=== PATIENT | female | born 1990 | race Caucasian/White ===

== ENCOUNTER 2022-01-01 07:50 | Day surgery (SDC) | payer SELFPAY ==
[~2022-01-01] VITALS: Ht 160 cm; Wt 81.1 kg
[2022-01-01] MEDS ORDERED: PRIL40 PO (09:13)
[2022-01-01] MEDS ORDERED: TOPAMAX 25MG25 M1 PO (09:13)
[2022-01-01 09:17] VITALS: BP 121/89; PULSE 88; TEMP 97.6
[2022-01-01 10:25] VITALS: BP 112/77; PULSE 82; TEMP 97.3
--- NOTE | 2022-01-01 10:25 | NUR ---
Patient arrives to [facility] for recovery. She is alert and oriented. She ambulates with steady gait to the chair in her room. VSS on room air. Denies pain or nausea. She is offered and receives water to drink. She does not want anything to eat.
--- NOTE | 2022-01-01 10:36 | NUR ---
Dr. Hubbard comes to the bedside and talks with the patient at this time.
[2022-01-01 10:40] VITALS: BP 114/94; PULSE 73
[2022-01-01 10:55] VITALS: BP 103/79; PULSE 77
--- NOTE | 2022-01-01 10:57 | NUR ---
Patient has met discharge criteria. Discharge instructions are discussed. She denies any questions and verbalizes understanding. PIV is removed with catheter intact and hemostasis achieved. She is changing to her clothing independently.
--- NOTE | 2022-01-01 11:04 | NUR ---
Patient is escorted to the exit via wheelchair by staff. She is discharged to the care of her boyfriend, who drives her home in a private vehicle at 1104.
== END 2022-01-01 11:04 | disposition home or self-care (01) ==
LOC: SDCO 07:50
DX: K29.50 Unspecified chronic gastritis without bleeding (principal); K59.00 Constipation, unspecified; K64.1 Second degree hemorrhoids; Z87.891 Personal history of nicotine dependence; K92.0 Hematemesis; K44.9 Diaphragmatic hernia without obstruction or gangrene; K31.89 Other diseases of stomach and duodenum; K64.9 Unspecified hemorrhoids
CPT/HCPCS: J2704; J7030

== ENCOUNTER → 2022-01-20 | Outpatient (CLI) | payer SELFPAY ==
[~2022-01-20] MED LIST: PRIL40 PO; TOPAMAX 25MG25 M1 PO
== END ==
LOC: COL.RAD 07:18
DX: K92.0 Hematemesis (principal); R74.8 Abnormal levels of other serum enzymes; R10.11 Right upper quadrant pain; Z72.89 Other problems related to lifestyle; K59.09 Other constipation